=== PATIENT | male | born 1965 | race Caucasian/White ===

== ENCOUNTER 2017-01-18 09:59 | Emergency (ER) | payer MEDICAID | END 2017-01-18 12:24 | disposition home or self-care (01) | LOC: D.ER 09:59 | DX: J20.9 Acute bronchitis, unspecified (principal) ==

== ENCOUNTER 2017-03-23 12:40 | Emergency (ER) | payer MEDICAID | END 2017-03-23 15:39 | disposition home or self-care (01) | LOC: D.ER 12:40 | DX: J20.9 Acute bronchitis, unspecified (principal); F17.200 Nicotine dependence, unspecified, uncomplicated ==